=== PATIENT | male | born 2000 | race Caucasian/White ===

== ENCOUNTER 2023-07-14 15:01 | Emergency (ER) | payer OTHER ==
--- NOTE | 2023-07-14 15:16 | ED ---
Lower Extremity Injury HPI <Fermin Linares - Last Filed: 07/14/23 18:41> - General Source: patient, RN notes reviewed Mode of arrival: ambulatory Limitations: no limitations <Kari Solorio - Last Filed: 07/14/23 23:23> - General Chief Complaint: Extremity Injury, Lower Stated Complaint: R ankle injury Time Seen by Provider: 07/14/23 15:10 - History of Present Illness Initial Comments: This is a 23-year-old male presents emergency department chief complaint of right ankle pain. 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 He denies falling at this time or hitting his head, complaints of ankle pain. Patient reports a numbness sensation to the lateral aspect of the ankle. He has not taken off his boot that goes to his mid-calf since the time of the injury. He denies knee or hip pain. States he has not taken anything for pain since the incident. (Kari Solorio) - Related Data Previous Rx's Medication Instructions Recorded HYDROcodone/APAP 5-325MG [[place] 1 tab PO Q4HR PRN 3 Days #18 tab 07/14/23 5-325] Allergies Allergy/AdvReac Type Severity Reaction Status Date / Time No Known Allergies Allergy Verified 07/14/23 15:08 Review of Systems ROS Other: All systems not noted in ROS Statement are negative. <MilagrosFermin - Last Filed: 07/14/23 18:41> ROS Other: All systems not noted in ROS Statement are negative. <Kari Solorio - Last Filed: 07/14/23 23:23> ROS Statement: Those systems with pertinent positive or pertinent negative responses have been documented in the HPI. Past Medical History Past Medical History: No Reported History History of Any Multi-Drug Resistant Organisms: None Reported Past Surgical History: No Surgical Hx Reported Past Psychological History: No Psychological Hx Reported Smoking Status: Never smoker Past Alcohol Use History: None Reported Past Drug Use History: None Reported <Kari Solorio - Last Filed: 07/14/23 23:23> General Exam Limitations: no limitations General appearance: alert Head exam: Present: atraumatic, normocephalic, normal inspection Eye exam: Present: normal appearance, PERRL, EOMI. Absent: scleral icterus, conjunctival injection, periorbital swelling ENT exam: Present: normal exam, mucous membranes moist Neck exam: Present: normal inspection. Absent: tenderness, meningismus, lymphadenopathy Respiratory exam: Present: normal lung sounds bilaterally. Absent: respiratory distress, wheezes, rales, rhonchi, stridor Cardiovascular Exam: Present: regular rate, normal rhythm, normal heart sounds. Absent: systolic murmur, diastolic murmur, rubs, gallop, clicks GI/Abdominal exam: Present: soft, normal bowel sounds. Absent: distended, tenderness, guarding, rebound, rigid Right Lower Leg exam: Present: normal inspection. Absent: tenderness, ecchymosis, deformity Ankle exam: Present: tenderness, deformity (ankle is inverted medially), dislocation (deformity of joint, ankle in an medial inversion). Absent: normal inspection, full ROM (unable to assess ROM due to pain), ecchymosis Foot/Toe exam: Absent: full ROM (unable to assess), tenderness Neurovascular tendon exam: Present: no vascular compromise (2+). Absent: pulse deficit, abnormal cap refill, motor deficit, extremity cold to touch Gait: not tested/not observed, unable to bear weight. negative: observed and normal Back exam: Present: normal inspection Neurological exam: Present: alert, oriented X3, CN II-XII intact Psychiatric exam: Present: normal affect, normal mood Skin exam: Present: warm, dry, intact, normal color. Absent: rash <Stieler,Kari - Last Filed: 07/14/23 23:23> Course Vital Signs 07/14/23 07/14/23 07/14/23 15:05 15:54 17:03 Temperature 98.3 F Pulse Rate 72 90 62 Respiratory 18 16 16 Rate Blood Pressure 115/76 117/64 122/74 O2 Sat by Pulse 100 99 100 Oximetry 07/14/23 07/14/23 07/14/23 17:09 17:14 17:19 Temperature Pulse Rate 75 72 71 Respiratory 16 16 16 Rate Blood Pressure 133/74 103/59 126/75 O2 Sat by Pulse 97 98 99 Oximetry 07/14/23 07/14/23 07/14/23 17:24 17:39 18:09 Temperature Pulse Rate 80 70 71 Respiratory 20 18 18 Rate Blood Pressure 126/75 115/60 122/88 O2 Sat by Pulse 98 99 98 Oximetry 07/14/23 07/14/23 18:39 18:52 Temperature 98.3 F Pulse Rate 72 Respiratory 18 Rate Blood Pressure 142/80 O2 Sat by Pulse 99 Oximetry Procedures - Orthopedic Joint Reduction Joint #1 Consent Obtained: verbal consent Side: right Joint Reduction Location: other (forefoot) Analgesia: procedural sedation Technique Used: direct manipulation Post-Reduction Neuro Exam: intact Post-Reduction Vascular Exam: intact Post Reduction X-Ray Obtained: Yes Post Reduction X-Ray Results: reduced Splint Applied: Yes Patient Tolerated Procedure: well, no complications - Orthopedic Splinting/Casting Injury #1 Side: right Lower Extremity Injury Location: short leg Lower Extremity Immobilizer: posterior splint Other Orthopedic Equipment: crutches - Procedural Sedation *Risks,benefits, and alternative therapies discussed?: Yes *Patient indicates understanding of risk/benefit discussion?: Yes *Indications: fracture/dislocation reduction *Previous Adverse Reaction to Anesthesia/Sedation?: No *ASA Class: I *Mallampati Airway Score: 3 Preparation: property assessment monitor applied, pulse oximeter, capnometry used, supplemental O2 applied, suction/airway equipment at bedside, IV secured <Fermin Linares - Last Filed: 07/14/23 18:41> - Orthopedic Joint Reduction Joint #1 Joint Reduction Location: other <Kari Solorio - Last Filed: 07/14/23 23:23> Medical Decision Making <Kari Solorio - Last Filed: 07/14/23 23:23> - Medical Decision Making MDM Was pt. sent in by a medical professional or institution (Dr. PA, PATIENT OBSERVATION ASSISTANT, urgent care, hospital, or correction...) When possible be specific @ -No Did you speak to anyone other than the patient for history (EMS, parent, family, police, friend...)? What history was obtained from this source @ -No Did you review nursing and triage notes (agree or disagree)? Why? @ -I reviewed and agree with nursing and triage notes Were old charts reviewed (outside hosp., previous admission, EMS record, old EKG, old radiological studies, urgent care reports/EKG's, correction records)? Report findings @ -No old charts were reviewed Differential Diagnosis (chest pain, altered mental status, abdominal pain women, abdominal pain men, vaginal bleeding, weakness, fever, dyspnea, syncope, headache, dizziness, GI bleed, back pain, seizure, CVA, palpatations, mental health, musculoskeletal)? @Differential Musculoskeletal Muscular strain, contusion, ligament sprain, fracture, arthritis, septic arthritis, bursitis, cellulitis, muscle spasm, nerve compression, DVT, arterial occlusion, herpes zoster, electrolyte abnormality, tumor.... This is not meant to be in all inclusive list EKG interpreted by me (3pts min.). @ -None X-rays interpreted by me (1pt min.). @ -XR of right ankle and foot reveals medial dislocation of the talonavicular joint with some possible subluxation of the calcaneocuboid and subtalar joints. No acute abnormality seen on ankle x-ray. second xray of right ankle and foot post reduction reveals reduction changes with proper alignment of the talus and navicular, bony fragments without definitive tumor site near the medial malleolus CT interpreted by me (1pt min.). @ -None done U/S interpreted by me (1pt. min.). @ -None done What testing was considered but not performed or refused? (CT, X-rays, U/S, labs)? Why? @ -None What meds were considered but not given or refused? Why? @ -None Did you discuss the management of the patient with other professionals (professionals i.e. , PA, PATIENT OBSERVATION ASSISTANT, lab, RT, psych nurse, social work instructor, billposting supervisor, teacher, weapons officer naval activity, insurance case manager)? Give summary @ -No Was smoking cessation discussed for >3mins.? @ -No Was critical care preformed (if so, how long)? @ -Yes, 5-10 minutes of critical care was performed while patient was consciously sedated using propofol to close reduce the patient's right forefoot. Traction was applied on the patient's ankle which is also noted and reduction of talus and navicular joint Were there social determinants of health that impacted care today? How? (Homelessness, low income, unemployed, alcoholism, drug addiction, transportation, low edu. Level, literacy, decrease access to med. care, nursing home, rehab)? @ -No Was there de-escalation of care discussed even if they declined (Discuss DNR or withdrawal of care, Hospice)? DNR status @ -No What co-morbidities impacted this encounter? (DM, HTN, Smoking, COPD, CAD, Canc er, CVA, ARF, Chemo, Hep., AIDS, mental health diagnosis, sleep apnea, morbid obesity)? @ -None Was patient admitted / discharged? Hospital course, mention meds given and route, prescriptions, significant lab abnormalities, going to OR and other pertinent info. @ -23 year old male with ankle pain and injury. On examination, patient's ankle was noted to be in inverted medially and unable to assess for active or passive ROM due to pain. neurovascuallry intact, 2+ pedal pulse noted and patient able to discriminate soft and hard touch. XRay revealed dislocation of the Tylenol 1500 joint. Patient was consciously sedated using propofol and medial traction was applied to the patient's right ankle replacement under the assistance of Dr. Linares. Respiratory was present in the room monitoring the patient's vitals and breathing in addition to JOSE Ivory, with documentation of the procedure. Postreduction x-ray revealed proper alignment of the talus and navicular bone. Patient was placed in short leg splint using 3 padded wrap in addition to Alireza wrap. Patient provided with outpatient referral to orthopedics for further evaluation in addition to a work note and crutches for ambulation. Patient also given prescription for norco as needed for pain over the next few days. Case discussed with Dr. Linares Undiagnosed new problem with uncertain prognosis? @ -No Drug Therapy requiring intensive monitoring for toxicity (Heparin, Nitro, Insulin, Cardizem)? @ -No Were any procedures done? @ -conscious sedation with joint reduction of the right forefoot. No complications. Splint with pre-padded splint and ALIREZA wrap, provided with crutches. Diagnosis/symptom? @ -ankle dislocation, fall, ankle pain, talonavicular joint dislocation Acute, or Chronic, or Acute on Chronic? @ -acute Uncomplicated (without systemic symptoms) or Complicated (systemic symptoms)? @ -complicated Side effects of treatment? @ -No Exacerbation, Progression, or Severe Exacerbation? @ -No Poses a threat to life or bodily function? How? (Chest pain, [place], [place], pneumonia, PE, COPD, DKA, ARF, appy, cholecystitis, CVA, Diverticulitis, Homicidal, Suicidal, threat to staff... and all critical care pts) @ -No (Kari Solorio) Disposition Is patient prescribed a controlled substance at d/c from ED?: Yes When asked, does pt state using other controlled substances?: No If prescribed controlled substance>3 days was MAPS reviewed?: Prescribed <3 Days If opioid is for acute pain is fill amount 7 days or less?: Yes If Rx opioid, was Start Talking consent form obtained?: Yes <Fermin Linares - Last Filed: 07/14/23 18:41> Is patient prescribed a controlled substance at d/c from ED?: No Time of Disposition: 17:41 <Kari Solorio - Last Filed: 07/14/23 23:23> Clinical Impression: Dislocation of right ankle joint Narrative: Please return to the Emergency Department if symptoms worsen or any other concerns. Follow-up with provided orthopedic referral for further evaluation. Continue to rest the affected ankle, elevate, apply ice and cycle use of Tylenol and Motrin. (Kari Solorio) Disposition: HOME SELF-CARE Condition: Good Instructions (If sedation given, give patient instructions): Moderate Sedation (ED), Ankle Dislocation (ED) Prescriptions: HYDROcodone/APAP 5-325MG [[place] 5-325] 1 tab PO Q4HR PRN 3 Days #18 tab PRN Reason: Pain Referrals: None,Stated [Primary Care Provider] - 1-2 days Garima Sifuentes DO [Doctor of Osteopathic Medicine] - 1-2 days
[2023-07-14 15:31] VITALS: TEMP 98.3
[2023-07-14] MEDS: ACETAMINOPHEN TAB 500 MG TAB PO STA (15:32)
[2023-07-14] MEDS: KETOROLAC 15 MG/ML 1 ML VIAL IVP STA (15:38)
[2023-07-14] MEDS: KETOROLAC 15 MG/ML 1 ML VIAL IM STA (16:15)
--- NOTE | 2023-07-14 16:22 | XR ---
EXAMINATION TYPE: XR ankle complete 3 views RT, XR foot complete 3 views RT DATE OF EXAM: 07/14/2023 COMPARISON: NONE HISTORY: 23-year-old male injury and pain after fall FINDINGS: Ankle: Ankle mortise appears congruent. Talar dome appears intact. Os trigonum noted. Foot: Medial dislocation at the level of the talonavicular joint and secondary foot deformity. The calcanea l cuboidal joint shows some excessive overlap on the lateral view suggesting possible joint subluxati on here as well. Possible widening along the posterior subtalar joint. No discrete fracture is seen. IMPRESSION: 1. Foot: Medial dislocation of the talonavicular joint. Some possible subluxation at the calcaneocubo idal and subtalar joints as well. 2. Ankle: No acute osseous abnormality seen.
[2023-07-14] MEDS: PROPOFOL 10 MG/ML 20 ML VIAL IV ONE (17:04)
--- NOTE | 2023-07-14 17:22 | XR ---
EXAMINATION TYPE: XR ankle limited RT DATE OF EXAM: 07/14/2023 5:13 PM CLINICAL INDICATION:Male, 23 years old with history of POST REDUCTION; [facility] COMPARISON: None TECHNIQUE: XR ankle limited RT; ankle is imaged in frontal, lateral and oblique projections. FINDINGS/IMPRESSION: Postreduction changes with proper alignment of the talus and navicular. There is bony fragments with out definitive donor site near the medial malleolus. Complete evaluation with CT recommended.
[2023-07-14 18:07] VITALS: RESP 18
[2023-07-14 18:45] VITALS: BP 142/80; PULSE 72
== END 2023-07-14 18:53 | disposition home or self-care (01) ==
LOC: EC 15:01
DX: S93.04XA Dislocation of right ankle joint, initial encounter (principal); W50.0XXA Accidental hit or strike by another person, initial encounter
CPT/HCPCS: 73600; 73610; 73630; 99284; 96374; 27818; 99152; J1885; J2704